=== PATIENT | female | born 2000 ===

== ENCOUNTER 2025-03-18 10:50 | Outpatient (CLI) | payer OTHER | END 2025-03-18 10:51 | disposition home or self-care (01) | LOC: PRENATAL 10:50 | PROVIDERS: ATTEND Obstetrics & Gynecology Maternal & Fetal Medicine | DX: O36.80X0 Pregnancy with inconclusive fetal viability, not applicable or unspecified (principal); Z36.82 Encounter for antenatal screening for nuchal translucency; Z14.8 Genetic carrier of other disease; Z3A.14 14 weeks gestation of pregnancy ==

== ENCOUNTER → 2025-04-30 10:51 | Outpatient (CLI) | payer OTHER | END | disposition home or self-care (01) | LOC: PRENATAL 10:51 | PROVIDERS: ATTEND Obstetrics & Gynecology Maternal & Fetal Medicine | DX: O44.00 Complete placenta previa NOS or without hemorrhage, unspecified trimester (principal); O99.210 Obesity complicating pregnancy, unspecified trimester; Z14.8 Genetic carrier of other disease; Z3A.21 21 weeks gestation of pregnancy ==

== ENCOUNTER → 2025-06-20 13:44 | Outpatient (CLI) | payer OTHER | END | disposition home or self-care (01) | LOC: PRENATAL 13:44 | PROVIDERS: ATTEND Obstetrics & Gynecology Maternal & Fetal Medicine | DX: O26.849 Uterine size-date discrepancy, unspecified trimester (principal); O36.8199 Decreased fetal movements, unspecified trimester, other fetus; O99.210 Obesity complicating pregnancy, unspecified trimester; Z14.8 Genetic carrier of other disease; Z3A.28 28 weeks gestation of pregnancy ==

== ENCOUNTER 2025-08-04 14:43 | Outpatient (CLI) | payer OTHER | END 2025-08-04 14:44 | disposition home or self-care (01) | LOC: PRENATAL 14:43 | PROVIDERS: ATTEND Obstetrics & Gynecology Maternal & Fetal Medicine | DX: O26.849 Uterine size-date discrepancy, unspecified trimester (principal); O36.8130 Decreased fetal movements, third trimester, not applicable or unspecified; O99.210 Obesity complicating pregnancy, unspecified trimester; Z14.8 Genetic carrier of other disease; Z3A.35 35 weeks gestation of pregnancy ==